=== PATIENT | female | born 1955 | race Caucasian/White ===

== ENCOUNTER 2024-05-27 07:42 | Outpatient (CLI) | payer MEDICARE, MEDICAID ==
[~2024-05-27 07:42] MED LIST: ALBU18HF2 INH; LANS15CA15 PO; SUCR1ORA2 PO
== END 2024-05-27 23:59 | disposition home or self-care (01) ==
LOC: RAD 07:42
PROVIDERS: ATTEND Family Medicine
DX: R33.9 Retention of urine, unspecified (principal)
CPT/HCPCS: 76857